=== PATIENT | female | born 1985 | race Caucasian/White ===

== ENCOUNTER → 2020-01-14 | Outpatient (CLI) | payer BC | LOC: LAB 10:01 | PROVIDERS: ATTEND Emergency Medicine | DX: Z20.828 Contact with and (suspected) exposure to other viral communicable diseases (principal) ==

== ENCOUNTER 2021-08-31 22:50 | Inpatient (IN) | payer BC ==
[~2021-08-31] VITALS: Ht 162.6 cm; Wt 68.9 kg
--- NOTE | 2021-08-31 22:50 | NUR ---
Pt. arrived to the unit as a direct admit. Juani GREGORY called and notifed that patient was here on the unit. Admitted for appendicitis. Admission assessment and history is completed. Pt. avdominal pain is a 2/10. No c/o nausea.
[2021-08-31 23:30] VITALS: BP 127/87
[2021-09-01 06:15] LABS: HEMATOCRIT 33.5 % (37.0-47.0); HEMOGLOBIN 11.3 gm/dL (12.0-15.0); MCH 30.7 pg (26.0-34.0); MCHC 33.8 g/dL (28.0-37.0); RBC 3.68 mil/uL (4.20-5.00); RDW 14.3 % (10.5-14.5); WBC 8.9 thou/uL (4.0-11.0)
[2021-09-01 06:40] LABS: CALCIUM 8.1 mg/dL (8.5-10.1); CREATININE 0.9 mg/dL (0.6-1.0)
[2021-09-01 06:54] LABS: POTASSIUM 3.5 mmol/L (3.5-5.1)
--- NOTE | 2021-09-01 11:31 | NUR ---
SURGERY TEAM HERE FOR PATIENT; PT LEFT FLOOR AT THIS TIME
[2021-09-01 15:07] VITALS: BP 130/91
[2021-09-01] MEDS ORDERED: ZOFRAN ODT4 MG PO (15:59)
[2021-09-01 17:18] VITALS: BP 130/91
--- NOTE | 2021-09-01 18:18 | NUR ---
discharge information discussed, all questions answered, pt is provider here at facility. she has good contact information if questions arise. clear liquid diet available, able to eat, no n/v, able to urinate. IV removed without difficulty, catheter intact. pressure dressing applied. pt left floor with in stable condition.
[2021-09-01] MEDS ORDERED: TRAMADOL 50 MG50 MG PO ×2 (19:22→19:24)
[2021-09-01] MEDS ORDERED: MIRALAX119 GM PO ×2 (19:22→19:24)
[2021-09-01] MEDS ORDERED: ADVIL200 M1 PO ×2 (19:22→19:24)
[2021-09-01] MEDS ORDERED: TYLENOL325 M1 PO ×2 (19:22→19:24)
--- NOTE | 2021-09-03 09:08 | PATH ---
[facility] [address] [place] [address] PATHOLOGY RPT PROCEDURE Name: KASSY FLORES Room #: 442-P [facility] M.R.#: [id number] Admission: 08/31/21 Date of : 81 Discharge: 09/01/21 Report #: [id number] Path Case #: [id number] [facility] Accession Number: [id number] . 01 Material submitted: . appendix - APPENDIX . 01 Clinical history: . SJ LAPAROSCOPIC APPENDECTOMY . 02 Diagnosis: Appendix, appendectomy: - Acute appendicitis with serositis. (ANK:pit; 09/02/2021) QTP 09/02/2021 1500 Local . 02 Electronically signed: . Jaja Quintana MD, Pathologist NPI- [id number] . 01 Gross description: . Fixative: Formalin Labeled: Appendix Appendix length: 8.1 cm Appendix diameter: 1.0 cm Mesoappendix: 1.9 cm Proximal margin: Stapled [place]: [place]-cardona with moderate vasculature Cut surface: Pigmented dilated Luminal diameter: Up to 0.8 cm Perforation: Not identified Lesions/abnormalities: None identified . Proximal margin and bisected tip in cassette A1. Additional it sales representative cross-sections in cassette A2. ([facility]; 09/01/2021) NRI/NRI 09/01/2021 1914 Local . 02 Pathologist provided ICD-10: K35.80, K65.8 . 02 CPT . 042830 Specimen Comment: A courtesy copy of this report has been sent to [phone] Specimen Comment: [id number] Specimen Comment: Report sent to / DR FRANCISCO [address] [address] PATHOLOGY RPT PROCEDURE Name: MARKKASSY L Room #: [address] [place] [address] [place] [facility]#: [id number] Admission: 08/31/21 Date of : 81 Discharge: 09/01/21 Report #: [id number] Path Case #: [id number] Performed at: [address], [place] [id number] MD Steve Cruz MD Phone: [phone] Performed at: [address] [id number] MD Jaja Quintana MD Phone: [phone]
== END 2021-09-01 18:35 | disposition home or self-care (01) | DRG 343 ==
LOC: 4S 22:50
PROVIDERS: Nurse Practitioner Family; ADMIT Pediatrics; ATTEND Pediatrics
PROC: 0DTJ4ZZ Resection of Appendix, Percutaneous Endoscopic Approach (ICD-10-PCS; principal; 2021-08-31)
DX: K35.80 Unspecified acute appendicitis (principal); Z83.3 Family history of diabetes mellitus; Z82.49 Family history of ischemic heart disease and other diseases of the circulatory system
CPT/HCPCS: 10100; 50010; 50101; 50411; 50555; 50739; 51489; 52265; 53307; 53310; 53312; 54022; 54118; 56462; 56525; 56526; 58574; 58867; 58868; 58911; 62110; 62900; 70005